=== PATIENT | male | born 1965 | race Caucasian/White ===

== ENCOUNTER → 2019-03-14 | Outpatient (CLI) | payer OTHER ==
--- NOTE | 2019-03-15 06:48 | ECHO ---
DATE OF SERVICE: 03/14/2019 AGE: 53. REFERRING PROVIDER: JUSTINE Santiago PATIENT LOCATION: Outpatient. REASON FOR THE STUDY: Shortness of breath. 2D MEASUREMENTS: IVS: 1.2 cm LV: 4.4 cm LVPW: 1.1 cm LA: 3.5 cm Aorta: 3.1 cm IVC: 1.8 cm DOPPLER MEASUREMENTS: Peak velocity across the aortic valve: 1.3 m/s Peak velocity across the LVOT: 0.93 m/s Mitral E: 0.78 Mitral A: 0.63 2D COMMENTS: 1. Normal left ventricular size, wall thickness, and normal global left ventricular systolic function. The estimated left ventricular systolic cardioversion is 60% to 65%. 2. Normal left atrium. Normal right atrium and right ventricle. 3. The atrial septum appeared to be normal without evidence of defect or shunt. 4. Normal aortic root. 5. No pericardial effusion seen. 6. Minimally calcified aortic valve with normal leaflet excursion. Mildly calcified mitral annulus with normal anterior mitral valve leaflet motion. Normal tricuspid valve. The pulmonic valve and proximal pulmonary artery branches were not well visualized. 7. The inferior vena cava was normal in size, central venous pressure is most likely normal. DOPPLER: No significant valvular abnormalities detected but trace mitral regurgitation. Assessment of the left ventricular diastolic function appeared to be normal. IMPRESSION: 1. Normal global left ventricular systolic and diastolic function. 2. Trace mitral regurgitation. 3. Aortic valve sclerosis without stenosis or aortic regurgitation. 4. Global longitudinal strain/GLS was 17.6, normal. No findings in this transthoracic echocardiogram that could explain the shortness of breath. Edited 03/15/2019 aml
== END ==
LOC: M CARPUL 09:00
PROVIDERS: ATTEND Nurse Practitioner Family
DX: R06.00 Dyspnea, unspecified (principal)

== ENCOUNTER → 2020-09-27 | Outpatient (REF) ==
--- NOTE | 2020-09-27 16:43 | REP ---
INDICATION: SOB. COMPARISON: Comparison chest x-ray is from 06 April 2015. TECHNIQUE: Two views.. FINDINGS: The lungs are well inflated and free of infiltrate. The pleural angles are sharp. The heart size is normal. Pulmonary vasculature is not increased. No significant bony abnormality is seen. There is evidence of a small sliding-type hiatal hernia behind the heart. Minimal linear fibrosis is seen in the left base. There are degenerative changes in the thoracic spine. IMPRESSION: No active disease. Small hiatal hernia. Mild linear fibrosis left base.. <Electronically signed by Luke Robledo > 09/27/20 [id number]
== END ==
LOC: M RAD 14:58
PROVIDERS: ATTEND Internal Medicine
DX: K44.9 Diaphragmatic hernia without obstruction or gangrene (principal); M51.34 Other intervertebral disc degeneration, thoracic region; R06.02 Shortness of breath

== ENCOUNTER → 2024-04-16 | Outpatient (REF) | LOC: M PLAIMG 10:48 | PROVIDERS: ATTEND Internal Medicine | DX: Z01.89 Encounter for other specified special examinations (principal) ==

== ENCOUNTER → 2024-10-28 | Outpatient (CLI) | payer OTHER | LOC: M WHC 07:26 | PROVIDERS: ATTEND Family Medicine | DX: N64.9 Disorder of breast, unspecified (principal) | CPT/HCPCS: 77066; G0279 ==